=== PATIENT | female | born 1980 | race Caucasian/White ===

== ENCOUNTER 2022-12-08 13:17 | Emergency (ER) | payer OTHER ==
[~2022-12-08] VITALS: Ht 157.5 cm; Wt 63.5 kg
[2022-12-08] MEDS ORDERED: CYCLOBENZAPRINE10 MG PO (14:11)
[2022-12-08 15:02] VITALS: BP 126/74
== END 2022-12-08 15:02 | disposition home or self-care (01) ==
LOC: ED 13:17
DX: S09.90XA Unspecified injury of head, initial encounter (principal); S13.9XXA Sprain of joints and ligaments of unspecified parts of neck, initial encounter; W01.198A Fall on same level from slipping, tripping and stumbling with subsequent striking against other object, initial encounter; Y93.01 Activity, walking, marching and hiking
CPT/HCPCS: 70450; 72125; 99283-25

== ENCOUNTER 2023-02-09 09:26 | Emergency (ER) | payer OTHER ==
[~2023-02-09 09:26] MED LIST: CYCLOBENZAPRINE10 MG PO
--- OUTSIDE RECORDS SUMMARY | 2023-02-09 09:32 | XMS ---
PreManage Notification: [employer] Events 1 event(s) in the past 18 months Most recent security events: Elopement at [facility] 12/08/2022 13:18 - Patient eloped before treatment completed. - Patient with suicidal and/or homicidal ideations eloped. - Patient eloped with IV in place. Details: Patient LWBS CRITERIA MET - Group Notification CARE PROVIDERS There are no care providers on record at this time. [facility] has no Care Guidelines for this patient. E.D. VISIT COUNT (12 MO.) 3 [facility]. TOTAL 3 NOTE: Visits indicate total known visits. ED/C VISIT TRACKING (12 MO.) 02/09/2023 09:27 [facility] TYPE: Emergency COMPLAINT: - WEAKNESS 12/08/2022 15:36 [facility] TYPE: Emergency COMPLAINT: - ALTERED MENTAL STATUS 12/08/2022 13:18 [facility] TYPE: Emergency COMPLAINT: - HEAD PAIN DIAGNOSES: - Activity, walking, marching and hiking - Fall on same level from slipping, tripping and stumbling with subsequent striking against other object, initial encounter - Headache, unspecified - Sprain of joints and ligaments of unspecified parts of neck, initial encounter - Unspecified injury of head, initial encounter - Unspecified injury of head, initial encounter INPATIENT VISIT TRACKING (12 MO.) No inpatient visits to display in this time frame [email or web address]
[2023-02-09 09:56] LABS: HEMOGLOBIN 12.9 g/dL (12.0-18.0)
[2023-02-09 10:01] LABS: BASOPHILS 2.7 % (0-2); EOSINOPHILS 3.9 % (0-6); HEMATOCRIT 38.5 % (35.0-50.0); MCH 30.7 (27-36); MCHC 33.6 g/dl (30-36); MCV 91.3 fl (81-99); MONOCYTES 7.8 % (0-12); NEUTROPHILS 56.6 % (39-80); PLATELET COUNT 304 K/uL (140-440); RBC 4.21 M/ul (4.3-5.7); RDW 14.5 (10.5-15.0)
[2023-02-09 10:09] LABS: ALBUMIN 3.5 g/dL (3.4-5.0); ALBUMIN/GLOBULIN RATIO 1.13 (1.1-2.4); ANION GAP 15.9 (7-21); BILIRUBIN, TOTAL 0.2 ng/dL (0.2-1.0); BUN/CREATININE RATIO 21.05 (6.0-28.6); CALCIUM 7.5 mg/dL (8.5-10.1); CREATININE, SERUM 0.76 mg/dL (0.55-1.02); POTASSIUM 3.9 mmol/L (3.5-5.1); PROTEIN, TOTAL 6.6 g/dL (6.4-8.2)
[2023-02-09 10:24] VITALS: BP 133/99
== END 2023-02-09 10:23 | disposition home or self-care (01) ==
LOC: ED 09:26
PROVIDERS: Emergency Medicine
DX: Z04.89 Encounter for examination and observation for other specified reasons (principal); F22 Delusional disorders
CPT/HCPCS: 36415; 80053; 84703; 85025; 99284